=== PATIENT | male | born 1980 | race Asian ===

== ENCOUNTER 2021-02-20 23:47 | Emergency (ER) | payer OTHER ==
[~2021-02-20] VITALS: Ht 180.3 cm; Wt 97.5 kg
[2021-02-21 02:46] VITALS: BP 160/85; TEMP 97.9
== END 2021-02-21 02:46 | disposition home or self-care (01) ==
LOC: ED 23:47
DX: S70.01XA Contusion of right hip, initial encounter (principal); S70.11XA Contusion of right thigh, initial encounter; V09.00XA Pedestrian injured in nontraffic accident involving unspecified motor vehicles, initial encounter; Y92.481 Parking lot as the place of occurrence of the external cause
CPT/HCPCS: 99283; J1885